=== PATIENT | female | born 1985 ===

== ENCOUNTER 2017-06-12 10:25 | Inpatient (IN) | payer OTHER ==
[2017-06-12] MEDS ORDERED: Sodium Chloride 0.9% 1,000 ML IV ONE ×2 (11:01→12:49)
--- NOTE | 2017-06-12 11:10 | C.PDOC ---
History Of Present Illness 32 y/o female, with history of hyperthyroidism and depression, presents to the ER complaining of dizziness. Patient states that she has not been feeling well for the past 3 days. Patient reports that she fainted 2 days ago. She feels dizzy while standing. She notes that she is shaking and vomiting.She is taking her medications for hyperthyroidism. Time Seen by Provider: 06/12/17 10:52 Chief Complaint (Nursing): Dizziness/Lightheaded History Per: Patient History/Exam Limitations: no limitations Onset/Duration Of Symptoms: Days Current Symptoms Are (Timing): Still Present Severity: Moderate Past Medical History Reviewed: Historical Data, Nursing Documentation, Vital Signs Vital Signs: Last Vital Signs Temp 98.1 F 06/12/17 10:38 Pulse 90 06/12/17 10:38 Resp 16 06/12/17 10:38 BP 141/102 H 06/12/17 10:38 Pulse Ox 100 06/12/17 14:15 - Medical History PMH: Depression, Hyperthyroidism Surgical History: No Surg Hx Family History: States: No Known Family Hx - Social History Hx Alcohol Use: No Hx Substance Use: No Review Of Systems Except As Marked, All Systems Reviewed And Found Negative. Constitutional: Negative for: Fever, Chills Gastrointestinal: Positive for: Vomiting Neurological: Positive for: Dizziness Physical Exam - Physical Exam Appears: Non-toxic, No Acute Distress Skin: Normal Color, Warm Head: Atraumatic, Normacephalic Eye(s): bilateral: Normal Inspection Nose: Normal Oral Mucosa: Moist Neck: Supple Chest: Symmetrical Cardiovascular: Rhythm Regular Respiratory: Normal Breath Sounds, No Accessory Muscle Use, No Rales, No Rhonchi , No Wheezing Gastrointestinal/Abdominal: Normal Exam, Soft, No Tenderness Extremity: Normal ROM Neurological/Psych: Oriented x3, Normal Speech, Normal Motor, Normal Sensation ED Course And Treatment - Laboratory Results Result Diagrams: 06/12/17 11:20 06/12/17 11:20 Lab Interpretation: Abnormal Urine POC: Negative ECG: Interpreted By Me ECG Rhythm: Sinus Rhythm, ST/T Changes ECG Interpretation: Normal O2 Sat by Pulse Oximetry: 100 (RA) Pulse Ox Interpretation: Normal - Radiology CXR: Interpreted by Nm CXR Interpretation: Yes: No Acute Disease Progress Note: Treated with IVF NSS x 2 liters Reassessment Condition: Improved - Physician Consult Information Physician Contacted: Bandar Hammer Outcome Of Conversation: admit Medical Decision Making Medical Decision Making: Plan: --Labs --UA --Meclizine PO Disposition Discussed With Dr.: Bandar Hammer Doctor Will See Patient In The: Hospital - Disposition Disposition: HOSPITALIZED Disposition Time: 13:20 Condition: STABLE - POA Present On Arrival: None - Clinical Impression Clinical Impression: Renal failure, Dizziness, Elevated TSH - PA / AREA FORESTER / Resident Statement MD/DO has reviewed & agrees with the documentation as recorded. - Scribe Statement The provider has reviewed the documentation as recorded by the Scribe César Williamson Provider Attestation All medical [facility] entries [facility] were at my direction and personally dictated by me. I have reviewed the chart and agree that the record accurately reflects my personal performance of the history, physical exam, medical decision making, and the department course for this patient. I have also personally directed, reviewed, and agree with the discharge instructions and disposition. Decision To Admit - Pt Status Changed To: Hospital Disposition Of: Inpatient - Admit Certification Admit to Inpatient:: After my assessment, the patient will require hospitalization for at least two midnights. This is because of the severity of symptoms shown, intensity of services needed, and/or the medical risk in this patient being treated as an outpatient. - InPatient: Physician Admission Certification: I certify that this patient requires 2 or more midnights of care for the following reason:: Renal Failure. Elevated TSH - . Bed Request Type: Regular Admitting Physician: Bandra Hammer Patient Diagnosis: Dizziness, Renal failure, Elevated TSH
[2017-06-12 11:32] LABS: BASO % 0.1 % (0.0-2.0); HEMOGLOBIN 11.8 g/dL (11.0-16.0); LYMPH # 1.4 K/uL (1.0-4.3); LYMPH % 20.6 % (20.0-40.0); MEAN CORPUSCULAR HGB CONC 33.4 g/dL (33.0-37.0); MEAN PLATELET VOLUME 7.8 fL (7.2-11.7); MONO # 0.3 K/uL (0.0-0.8); NEUT % 74.3 % (50.0-75.0); RBC 4.37 Mil/uL (3.80-5.20); RED CELL DISTRIBUTION WIDTH 14.5 % (11.5-14.5); WHITE BLOOD COUNT 6.7 K/uL (4.8-10.8)
[2017-06-12 11:39] LABS: ALB/GLOB RATIO 1.1 (1.0-2.1); ALBUMIN 4.3 g/dL (3.5-5.0); CALCIUM 9.7 mg/dl (8.6-10.4)
[2017-06-12 12:01] LABS: HCG,QUALITATIVE URINE NEGATIVE (NEGATIVE)
[2017-06-12 12:04] LABS: SQUAMOUS EPITHIAL 4 /hpf (0-5); URINE BACTERIA RARE (<OCC); URINE BILIRUBIN NEGATIVE (NEGATIVE); URINE BLOOD 2+ (NEGATIVE); URINE CLARITY Clear (Clear); URINE COLOR Straw (YELLOW); URINE GLUCOSE (UA) NORMAL (Normal); URINE LEUKOCYTE ESTERASE 1+ Leu/uL (Negative); URINE PROTEIN NEGATIVE (NEGATIVE); URINE UROBILINOGEN NORMAL mg/dL (0.2-1.0)
--- NOTE | 2017-06-12 13:16 | RAD ---
HISTORY: SOB COMPARISON: Chest x-ray performed 05/12/16 TECHNIQUE: Chest PA and lateral FINDINGS: Examination limited by habitus. LUNGS: No focal consolidation. Please note that chest x-ray has limited sensitivity for the detection of pulmonary masses. PLEURA: No significant pleural effusion identified. No definite pneumothorax . CARDIOVASCULAR: Heart size appears within normal limits. OSSEOUS STRUCTURES: No acute osseous abnormality identified. VISUALIZED UPPER ABDOMEN: Unremarkable. OTHER FINDINGS: None. IMPRESSION: No focal consolidation identified.
--- NOTE | 2017-06-12 18:50 | CP.PCM.HP ---
History of Present Illness - History of Present Illness History of Present Illness: 32 y/o female, with history of hyperthyroidism and depression, presents to the ER complaining of dizziness. Patient states that she has not been feeling well for the past 3 days. Patient reports that she fainted 2 days ago. She feels dizzy while standing. She notes that she is shaking and vomiting. She reports to be compliant with her medications for hypothyroidism Present on Admission - Present on Admission Any Indicators Present on Admission: No History of DVT/PE: No History of Uncontrolled Diabetes: No Urinary Catheter: No Decubitus Ulcer Present: No Review of Systems - Review of Systems All systems: reviewed and no additional remarkable complaints except (As mentioned in HPI) Past Patient History - Past Social History Smoking Status: Never Smoked - ENDOCRINE/METABOLIC Hx Hyperthyroidism: Yes - PSYCHIATRIC Hx Depression: Yes Hx Substance Use: No - SURGICAL HISTORY Hx Surgeries: No - ANESTHESIA Hx Anesthesia: No Meds Home Medications: Home Medication List Medication Instructions Recorded Confirmed Type Levothyroxine [Synthroid] 100 mcg PO DAILY@0630 tab 06/17/17 Rx Multivitamins [Hexavitamin] 1 tab PO DAILY tab 06/17/17 Rx amLODIPine [Norvasc] 5 mg PO DAILY #30 tab 06/17/17 Rx traZODone [Desyrel] 50 mg PO HS #15 tab 06/17/17 Rx Allergies/Adverse Reactions: Allergies Allergy/AdvReac Type Severity Reaction Status Date / Time No Known Allergies Allergy Verified 06/22/17 13:23 Physical Exam - Head Exam Head Exam: NORMAL INSPECTION - Eye Exam Eye Exam: Normal appearance - ENT Exam ENT Exam: Mucous Membranes Moist - Respiratory Exam Respiratory Exam: Clear to Auscultation Bilateral - Cardiovascular Exam Cardiovascular Exam: REGULAR RHYTHM - GI/Abdominal Exam GI & Abdominal Exam: Normal Bowel Sounds, Soft - Extremities Exam Extremities exam: Positive for: normal inspection Results - Vital Signs Recent Vital Signs: Last Vital Signs Temp 98.9 F 06/12/17 17:07 Pulse 68 06/12/17 17:07 Resp 20 06/12/17 17:07 BP 124/89 06/12/17 17:07 Pulse Ox 98 06/12/17 17:07 - Labs Result Diagrams: 06/15/17 08:18 06/17/17 11:15 Labs: Laboratory Results - last 24 hr 06/12/17 06/12/17 06/12/17 10:56 11:20 11:20 WBC 6.7 RBC 4.37 Hgb 11.8 Hct 35.4 MCV 81.0 MCH 27.0 MCHC 33.4 RDW 14.5 Plt Count 321 MPV 7.8 Neut % (Auto) 74.3 Lymph % (Auto) 20.6 [place] % (Auto) 5.0 Eos % (Auto) 0.0 Baso % (Auto) 0.1 Neut # (Auto) 5.0 Lymph # (Auto) 1.4 [place] # (Auto) 0.3 Eos # (Auto) 0.0 Baso # (Auto) 0.0 Sodium 140 Potassium 5.1 Chloride 107 Carbon Dioxide 22 Anion Gap 17 BUN 19 H Creatinine 2.2 H Est GFR ( Amer) 31 Est GFR (Non-Af Amer) 26 POC Glucose (mg/dL) 86 Random Glucose 94 Calcium 9.7 Total Bilirubin 0.4 AST 22 ALT 18 Alkaline Phosphatase 133 H Total Protein 8.1 Albumin 4.3 Globulin 3.8 Albumin/Globulin Ratio 1.1 TSH 3rd Generation 14.10 H Urine Color Urine Clarity Urine pH Ur Specific [place] Urine Protein Urine Glucose (UA) Urine Ketones Urine Blood Urine Nitrate Urine Bilirubin Urine Urobilinogen Ur Leukocyte Esterase Urine WBC (Auto) Urine RBC (Auto) Ur Squamous Epith Cells Urine Bacteria Urine HCG, Qual 06/12/17 11:54 WBC RBC Hgb Hct MCV MCH MCHC RDW Plt Count MPV Neut % (Auto) Lymph % (Auto) [place] % (Auto) Eos % (Auto) Baso % (Auto) Neut # (Auto) Lymph # (Auto) [place] # (Auto) Eos # (Auto) Baso # (Auto) Sodium Potassium Chloride Carbon Dioxide Anion Gap BUN Creatinine Est GFR ( Amer) Est GFR (Non-Af Amer) POC Glucose (mg/dL) Random Glucose Calcium Total Bilirubin AST ALT Alkaline Phosphatase Total Protein Albumin Globulin Albumin/Globulin Ratio TSH 3rd Generation Urine Color Straw Urine Clarity Clear Urine pH 7.0 Ur Specific [place] 1.002 L Urine Protein Negative Urine Glucose (UA) Normal Urine Ketones Negative Urine Blood 2+ H Urine Nitrate Negative Urine Bilirubin Negative Urine Urobilinogen Normal Ur Leukocyte Esterase 1+ H Urine WBC (Auto) 5 Urine RBC (Auto) 20 H Ur Squamous Epith Cells 4 Urine Bacteria Rare Urine HCG, Qual Negative Assessment & Plan - Assessment and Plan (Free Text) Assessment: LI versus CKD Bipolar disorder Anemia Nephrology consult Renal sono Urine lites Gentle hydration Follow CBC Hold lithium and other bipolar medications Psych consult DVT/GI prophylaxis
[2017-06-12] MEDS ORDERED: Sodium Chloride 0.45% 500ml 500 ML SOL IV SCH (19:00)
[2017-06-12] MEDS ORDERED: Sodium Chloride 0.9% 1,000 ML IV SCH (19:15)
[2017-06-12] MEDS: Sodium Chloride 0.45% 1,000 ML IV SCH (20:08)
[2017-06-12] MEDS: Ciprofloxacin 400mg/200ml D5W 400 MG/200 ML BAG IVPB SCH (22:20)
[2017-06-13 07:58] VITALS: RESP 20
[2017-06-13 08:35] LABS: HEMOGLOBIN 11.7 g/dL (11.0-16.0); MEAN CELL VOLUME 80.9 fL (81.0-99.0); MEAN CORPUSCULAR HEMOGLOBIN 27.2 pg (27.0-31.0); MEAN CORPUSCULAR HGB CONC 33.6 g/dL (33.0-37.0); MEAN PLATELET VOLUME 7.9 fL (7.2-11.7); RBC 4.29 Mil/uL (3.80-5.20); RED CELL DISTRIBUTION WIDTH 14.9 % (11.5-14.5); WHITE BLOOD COUNT 5.6 K/uL (4.8-10.8)
[2017-06-13 09:26] LABS: ALB/GLOB RATIO 1.1 (1.0-2.1); CALCIUM 9.7 mg/dl (8.6-10.4)
--- NOTE | 2017-06-13 10:27 | US ---
PROCEDURE: Ultrasound of the Kidneys HISTORY: LI COMPARISON: None available. TECHNIQUE: Sonogram of the kidneys. FINDINGS: RIGHT KIDNEY: Measures: 10.6 x 4.1 x 5.4 cm. Mildly echogenic renal parenchyma. No obstructing calculus, cyst, or hydronephrosis visualized. LEFT KIDNEY: Measures: 11.5 x 5.2 x 3.4 cm. Mildly echogenic renal parenchyma. No obstructing calculus, cyst, or hydronephrosis visualized. OTHER FINDINGS: Cholelithiasis. IMPRESSION: No obstructing calculus, cyst, or hydronephrosis visualized. Incidental note is made of cholelithiasis.
[2017-06-13] MEDS: Sodium Chloride 0.45% 1,000 ML IV SCH (10:54)
[2017-06-13 15:03] LABS: PROTHROMBIN TIME 11.6 SECONDS (9.7-12.2)
--- NOTE | 2017-06-13 15:19 | CP.PCM.CON ---
History of Present Illness - History of Present Illness History of Present Illness: Nephrology Consultation Note: Assessment: Stable Microscopic hematuria Anemia Hypernatremia and low urines specific gravity ? 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 Hypertension control with meds as ordered. Patient not on ACEI/ARB due to LI Monitor Input/Output, daily weights and renal function with basic metabolic panel Check urine analysis, spot protein/creatinine and albumin/creatinine ratio Check for 25-OH vitamin D, iPTH Check GN work up as C3, C4, KAIT, Anti dsDNA. Check lithium level Continue the IV fluid as ordered patient was encouraged to drink plenty of fluid and water Discussed kidney biopsy as a way to diagnosis of her kidney disease at this time. patient is agreeable patient is scheduled for kidney biopsy tomorrow This is the primary team as well. Discussed with psychiatrist as well and he is agreeable to hold the lithium at this time Hold the metformin at this time as well. Check A1c The patient to lose weight Dose meds/antibiotics for reduced GFR. Avoid fleets enema/magnesium based laxatives. Avoid nephrotoxins/NSAIDs/ iodinated contrast (unless needed emergently) Glycemic control Further work up/management as per primary team Thanks for allowing me to participate in care of your patient. Will follow patient with you. Please call if any Qs Dr Abhishek Zimmer Office: [phone] Chief Complaint; Dizziness Reason for consultation is Li HPI: Pt is a 32-year-old female with history of obesity bipolar disorder on lithium for more than 10 years also on metformin? Reason also thyroid disorder currently on thyroid supplementation presented with complaints of Dizziness and also elevated creatinine and hence renal was consulted Denies OTC/herbal meds or NSAIDs Except occasional use for headache No recent iodinated contrast exposure. No obvious episodes of low BP. ROS: Cardiovascular: No chest pain. Pulmonary: No shortness of breath Gastrointestinal: denies abdominal pain No nausea. No vomiting. Genitourinary: No pain while urinating. Denies blood in urine. All other negative except as mentioned in HPI Physical Examination: General Appearance: Comfortable, in no acute respiratory distress, co-operative . Vitals reviewed and noted as below Head; Atraumatic, normocephalic ENT: no ulcers no thrush. Tongue is midline. Oropharynx: no rash or ulcers. EYES: Pupils are equal, round and reactive to light accommodation. Eye muscles and extraocular movement intact. Sclera is anicteric. Neck; supple no lymphadenopathy, no thyromegaly or bruit Lungs: Normal respiratory rate/effort. Breath sounds bilateral equal and clear Heart: Normal rate. s1s2 normal. No rub or gallop. Extremities: no edema. No varicose veins Neurological: Patient is alert, awake and oriented to person, place and time. No focal deficit. Strength bilateral appropriate and equal Skin: Warm and dry. Normal turgor. No rash. Palpitation: Normal elasticity for age Abdomen: Abdomen is soft. Bowel sounds +. There is no abdominal tenderness, no guarding/rigidity no organomegaly Psych: normal insight and normal affect/mood MSK: no joint tenderness or swelling. Digits and nails normal, no deformity : kidney or bladder not palpable Labs/imaging reviewed. Past medical history, past surgical history, family history, social history, allergy reviewed and noted as below Family hx: no hx of CKD. Rest non-contributory Workup UA shows specific gravity of 1.002 and 2+ blood no protein Renal sonogram bilateral mildly echogenic kidneys Past Patient History - Past Social History Smoking Status: Never Smoked - CARDIAC Hx Hypertension: Yes (?) Hx Hypotension: Yes (?) - ENDOCRINE/METABOLIC Hx Hyperthyroidism: Yes - MUSCULOSKELETAL/RHEUMATOLOGICAL Hx Falls: Yes (2 months) - PSYCHIATRIC Hx Depression: Yes Hx Substance Use: No - SURGICAL HISTORY Hx Surgeries: No - ANESTHESIA Hx Anesthesia: No Meds Allergies/Adverse Reactions: Allergies Allergy/AdvReac Type Severity Reaction Status Date / Time No Known Allergies Allergy Verified 06/12/17 10:47 - Medications Medications: Current Medications Aripiprazole (Abilify) 10 mg PO HS TR[facility] Heparin Sodium (Porcine) (Heparin) 5,000 units SC Q12 TR[facility] Last Admin: 06/13/17 10:54 Dose: 5,000 units Sodium Chloride (Sodium Chloride 0.45%) 1,000 mls @ 75 mls/hr IV .[id number] TRISH Last Admin: 06/13/17 10:54 Dose: Not Given Ciprofloxacin (Cipro 400mg/200ml Dsw) 400 mg in 200 mls @ 133 mls/hr IVPB Q24H [facility] Last Admin: 06/12/17 22:20 Dose: 133 mls/hr Pneumococcal Polyvalent Vaccine (Pneumovax 23 Vaccine) 0.5 ml IM .ONCE ONE Stop: 06/14/17 10:01 Trazodone HCl (Desyrel) 50 mg PO [facility] Results - Vital Signs Recent Vital Signs: Last Vital Signs Temp 97.8 F 06/13/17 07:57 Pulse 76 06/13/17 07:57 Resp 20 06/13/17 07:57 BP 127/84 06/13/17 07:57 Pulse Ox 98 06/13/17 07:57 - Labs Result Diagrams: 06/13/17 08:24 06/13/17 08:24 Labs: Laboratory Results - last 24 hr 06/12/17 06/13/17 06/13/17 21:31 08:24 08:24 WBC 5.6 RBC 4.29 Hgb 11.7 Hct 34.7 MCV 80.9 L MCH 27.2 MCHC 33.6 RDW 14.9 H Plt Count 325 MPV 7.9 PT INR APTT Sodium 147 Potassium 5.0 Chloride 115 H Carbon Dioxide 21 L Anion Gap 16 BUN 17 Creatinine 2.1 H Est GFR ( Amer) 33 Est GFR (Non-Af Amer) 27 Random Glucose 99 Hemoglobin A1c Calcium 9.7 Total Bilirubin 0.5 AST 23 ALT 16 Alkaline Phosphatase 127 H Total Protein 7.6 Albumin 4.0 Globulin 3.6 Albumin/Globulin Ratio 1.1 Ur Random Sodium 38 06/13/17 06/13/17 14:52 14:52 WBC RBC Hgb Hct MCV MCH MCHC RDW Plt Count MPV PT 11.6 INR 1.0 APTT 32 Sodium Potassium Chloride Carbon Dioxide Anion Gap BUN Creatinine Est GFR ( Amer) Est GFR (Non-Af Amer) Random Glucose Hemoglobin A1c 5.5 Calcium Total Bilirubin AST ALT Alkaline Phosphatase Total Protein Albumin Globulin Albumin/Globulin Ratio Ur Random Sodium
--- NOTE | 2017-06-13 15:57 | PCM.PSYCH ---
Initial Psychiatric Evaluation - Initial Psychiatric Evaluation Type of Admission: Voluntary Legal Status: Capacity Chief Complaint (in patient's own words): Psych Consult for depression History of Present Illness and Precipitating Events: Consult was asked for her psych hx 32 yo F with PMHx significant for hypothyroid, HTN, bipolar disorder and depression who presented to the ED yesterday for feelings of dizziness, lightheadedness and near-syncope x 1 over the past few days. Upon arrival to the ED, her CMP revealed elevated BUN/Cr and she was subsequently admitted for LI. CXR negative for acute pathology. Renal u/s negative for hydronephrosis. Psych consult was requested for patient's h/o depression and for review of medications. At this time, patient feels well overall. Denies any current anxiety, depression, sadness, panic episodes, sleep disturbances, SI/HI, hallucinations, catherine or seizure. Medications: [place], Abilify, Zyprexa Psych Hx: Hospitalized multiple times for psychiatric issues (last time in 2011) . She receives care from [facility]. Denies any drugs, alcohol or tobacco use. No prior suicidal attempts. Fam Hx: Denies Current Medications: Active Medications Generic Name Dose Route Start Last Admin Trade Name Freq PRN Reason Stop Dose Admin Aripiprazole 10 mg 06/13/17 22:00 Abilify PO HS TRISH Heparin Sodium (Porcine) 5,000 units 06/12/17 22:00 06/13/17 10:54 Heparin SC 5,000 units Q12 TRISH Administration Sodium Chloride 1,000 mls @ 75 mls/hr 06/12/17 19:15 06/13/17 10:54 Sodium Chloride 0.45% IV Not Given .[id number] TRISH Ciprofloxacin 400 mg in 200 mls @ 133 mls/hr 06/12/17 21:00 06/12/17 22:20 Cipro 400mg/200ml Dsw IVPB 133 mls/hr Q24H TRISH Administration Pneumococcal Polyvalent Vaccine 0.5 ml 06/14/17 10:00 Pneumovax 23 Vaccine IM 06/14/17 10:01 .ONCE ONE Trazodone HCl 50 mg 06/13/17 22:00 Desyrel PO HS TRISH Past Psychiatric History - Past Psychiatric History Pertinent Medical Hx (Current Medical&Sleep Prob, Allergies): Allergies Allergy/AdvReac Type Severity Reaction Status Date / Time No Known Allergies Allergy Verified 06/12/17 10:47 Naproxen [Naprosyn] 500 mg PO BID PRN #20 tab 05/12/16 ARIPiprazole [Abilify] 15 mg PO DAILY 06/12/17 Levothyroxine [Synthroid] 50 mcg PO DAILY 06/12/17 Westdale Carbonate [Westdale Carbonate 300MG] 300 mg PO HS 06/12/17 Metformin ER [Glucophage XR] 750 mg PO DAILY 06/12/17 Olanzapine [Zyprexa] 1 tab PO HS 06/12/17 Review of Systems - Constitutional Constitutional: absent: Fever, Chills - Psychiatric Psychiatric: absent: Anxiety, Confusion, Depression, Hallucinations, Homicidal Ideation, Irritability, Panic Attacks, Paranoia, Suicidal Ideation Mental Status Examination - Personal Presentation Personal Presentation: Looks stated age - Affect Affect: Broad - Motor Activity Motor Activity: Calm - Reliability in Providing Information Reliability in Providing Information: Good - Speech Speech: Organized - Mood Mood: Neutral - Formal Thought Process Formal Thought Process: No Impairment - Obsessions/Compulsions Obsessions: No Compulsions: No - Cognitive Functions Orientation: Person, Place, Situation, Time Sensorium: Alert Abstract Thinking: [place] Judgement: Intact, as evidence by: Good judgement Memory: Recent intact, as evidence by: Ability to recall events of the day, Remote intact, as evidenced by: Abilit to recall sig. life events - Risk Risk: Seizure, Diminished functioning - Strength & Assets Inventory Strength & Assets Inventory: Intelligence, Family support, Employment status, Skills, Life experience, Cooperative DSM 5 DX - DSM 5 DSM 5 Diagnosis: Bipola 1 d/o - depressed/mild - Recommended/Plan of Treatment Treatment Recommendations and Plan of Treatment: Plan to stop [place] at this time and evaluate for lithium toxicity Pt instructed to avoid NSAIDS and ASA Cont. Abilify pr meds Resume synthroid 33 min - Smoking Cessation Smoking Cessation Initiated: No
--- NOTE | 2017-06-13 18:05 | CP.PCM.PN ---
Subjective - Date & Time of Evaluation Date of Evaluation: 06/13/17 Time of Evaluation: 18:05 - Subjective Subjective: Patient seen and examined No events overnight Objective - Vital Signs/Intake and Output Vital Signs (last 24 hours): Temp Pulse Resp BP Pulse Ox 97.3 F L 99 H 20 136/94 H 99 06/13/17 16:00 06/13/17 16:00 06/13/17 16:00 06/13/17 16:00 06/13/17 16:00 Intake and Output: 06/13/17 06/13/17 06:59 18:59 Intake Total 1460 600 Balance 1460 600 - Medications Medications: Current Medications Aripiprazole (Abilify) 10 mg PO HS [facility] Heparin Sodium (Porcine) (Heparin) 5,000 units SC Q12 [facility] Last Admin: 06/13/17 10:54 Dose: 5,000 units Sodium Chloride (Sodium Chloride 0.45%) 1,000 mls @ 75 mls/hr IV .[id number] [facility] Last Admin: 06/13/17 10:54 Dose: Not Given Ciprofloxacin (Cipro 400mg/200ml Dsw) 400 mg in 200 mls @ 133 mls/hr IVPB Q24H [facility] Last Admin: 06/12/17 22:20 Dose: 133 mls/hr Pneumococcal Polyvalent Vaccine (Pneumovax 23 Vaccine) 0.5 ml IM .ONCE ONE Stop: 06/14/17 10:01 Trazodone HCl (Desyrel) 50 mg PO [facility] - Labs Labs: 06/13/17 08:24 06/13/17 08:24 PT 11.6 SECONDS (9.7-12.2) 06/13/17 14:52 INR 1.0 06/13/17 14:52 APTT 32 SECONDS (21-34) 06/13/17 14:52 - Head Exam Head Exam: NORMAL INSPECTION - Eye Exam Eye Exam: Normal appearance - ENT Exam ENT Exam: Mucous Membranes Moist - Respiratory Exam Respiratory Exam: Clear to Ausculation Bilateral - Cardiovascular Exam Cardiovascular Exam: REGULAR RHYTHM, +S1, +S2 - GI/Abdominal Exam GI & Abdominal Exam: Soft, Normal Bowel Sounds - Extremities Exam Extremities Exam: Normal Inspection - Neurological Exam Neurological Exam: Alert, Oriented x3 Assessment and Plan - Assessment and Plan (Free Text) Assessment: 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
--- NOTE | 2017-06-13 18:56 | CARD ---
APPROVED REPORT EKG Measurement Heart [id number] <Conclusion> Normal sinus rhythm Nonspecific ST abnormality Abnormal ECG
[2017-06-13] MEDS: Ciprofloxacin 400mg/200ml D5W 400 MG/200 ML BAG IVPB SCH (21:38)
[2017-06-13 22:19] LABS: CREATININE, RANDOM URINE 18.4 mg/dL
--- NOTE | 2017-06-13 23:25 | CP.PCM.CON ---
History of Present Illness - History of Present Illness History of Present Illness: hypothyroidism Past Patient History - Past Social History Smoking Status: Never Smoked - CARDIAC Hx Hypertension: Yes (?) Hx Hypotension: Yes (?) - ENDOCRINE/METABOLIC Hx Hyperthyroidism: Yes - MUSCULOSKELETAL/RHEUMATOLOGICAL Hx Falls: Yes (2 months) - PSYCHIATRIC Hx Depression: Yes Hx Substance Use: No - SURGICAL HISTORY Hx Surgeries: No - ANESTHESIA Hx Anesthesia: No Meds Allergies/Adverse Reactions: Allergies Allergy/AdvReac Type Severity Reaction Status Date / Time No Known Allergies Allergy Verified 06/12/17 10:47 - Medications Medications: Current Medications Aripiprazole (Abilify) 10 mg PO HS [facility] Last Admin: 06/13/17 22:00 Dose: 10 mg Heparin Sodium (Porcine) (Heparin) 5,000 units SC Q12 [facility] Last Admin: 06/13/17 21:41 Dose: 5,000 units Sodium Chloride (Sodium Chloride 0.45%) 1,000 mls @ 75 mls/hr IV .[id number] [facility] Last Admin: 06/13/17 10:54 Dose: Not Given Ciprofloxacin (Cipro 400mg/200ml Dsw) 400 mg in 200 mls @ 133 mls/hr IVPB Q24H [facility] Last Admin: 06/13/17 21:38 Dose: 133 mls/hr Pneumococcal Polyvalent Vaccine (Pneumovax 23 Vaccine) 0.5 ml IM .ONCE ONE Stop: 06/14/17 10:01 Trazodone HCl (Desyrel) 50 mg PO [facility] Last Admin: 06/13/17 21:40 Dose: 50 mg Results - Vital Signs Recent Vital Signs: Last Vital Signs Temp 97.3 F L 06/13/17 16:00 Pulse 99 H 06/13/17 16:00 Resp 20 06/13/17 16:00 BP 136/94 H 06/13/17 16:00 Pulse Ox 99 06/13/17 16:00 - Labs Result Diagrams: 06/13/17 08:24 06/13/17 08:24 Labs: Laboratory Results - last 24 hr 06/13/17 06/13/17 06/13/17 08:24 08:24 14:52 WBC 5.6 RBC 4.29 Hgb 11.7 Hct 34.7 MCV 80.9 L MCH 27.2 MCHC 33.6 RDW 14.9 H Plt Count 325 MPV 7.9 PT 11.6 INR 1.0 APTT 32 Sodium 147 Potassium 5.0 Chloride 115 H Carbon Dioxide 21 L Anion Gap 16 BUN 17 Creatinine 2.1 H Est GFR ( Amer) 33 Est GFR (Non-Af Amer) 27 Random Glucose 99 Hemoglobin A1c Calcium 9.7 Total Bilirubin 0.5 AST 23 ALT 16 Alkaline Phosphatase 127 H Total Protein 7.6 Albumin 4.0 Globulin 3.6 Albumin/Globulin Ratio 1.1 Urine Osmolality Ur Random Creatinine U Random Total Protein Ur Random Sodium Urine Microalbumin [place] 06/13/17 06/13/17 06/13/17 14:52 14:52 21:51 WBC RBC Hgb Hct MCV MCH MCHC RDW Plt Count MPV PT INR APTT Sodium Potassium Chloride Carbon Dioxide Anion Gap BUN Creatinine Est GFR ( Amer) Est GFR (Non-Af Amer) Random Glucose Hemoglobin A1c 5.5 Calcium Total Bilirubin AST ALT Alkaline Phosphatase Total Protein Albumin Globulin Albumin/Globulin Ratio Urine Osmolality 132 L Ur Random Creatinine 18.4 U Random Total Protein Ur Random Sodium 30 Urine Microalbumin [place] 1.0 06/13/17 06/13/17 21:53 21:55 WBC RBC Hgb Hct MCV MCH MCHC RDW Plt Count MPV PT INR APTT Sodium Potassium Chloride Carbon Dioxide Anion Gap BUN Creatinine Est GFR ( Amer) Est GFR (Non-Af Amer) Random Glucose Hemoglobin A1c Calcium Total Bilirubin AST ALT Alkaline Phosphatase Total Protein Albumin Globulin Albumin/Globulin Ratio Urine Osmolality Ur Random Creatinine U Random Total Protein 16.0 H Ur Random Sodium Urine Microalbumin < 6.0 [place] Assessment & Plan (1) Hypothyroid Assessment and Plan: Endocrine consult reason for consult: hypothyroidism Source: pt and chart review Ms. Jimenes is 32 y/o admitted for diziness found with TSH of 14 as per pt. has hypothyroidism x 12 years on synthroid 50 mcg po qd , as per pt. compliant with her medications has been feeling tired & gaining weight , also with multinodular goiter s/p multiple FNAs , last was 2017 ok as per pt. 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 HEENT: denies earache, change in voice .Respiratory: denies cough, sob . CVS :no chest pain , no palpitations . Abdomen: no abdominal pain, no nausea /vomiting, no change bowel movement. 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 Extremities: no edema, no tremors. Skin: no itching, no rash Physical exam Well-developed AAO x3 , ,NAD VSS HEENT: norm cephalic, atraumatic, no lid lag , no exophthalmos NECK: supple, no palpable lymphadenopathy THYROID: (+) thyromegaly, not tender CHEST: fair air entry, bilateral, CVS: S1,S2 ABDOMEN: bowel sound present, benign, obese, no wide purple striae , no bruises EXTREMITIES: no edema, clubbing or cyanosis, no palpable hand tremors Skin: acanthosis nigricans lab: tsh 14 , a1c 5.5 , cr 2.2 GFR 33 Assessment hypothyroid multinodular goiter CKD obesity , parents with diabetes plan resume and increase synthroid 75 mcg po qd obtain thyroid functions & antibodies obtain fructosamine level thyroid us Thank you for allowing me to participate in the care of the patient, we will follow with you. Status: Acute (2) Multinodular goiter Status: Acute (3) Obesity (BMI 30-39.9) Status: Acute (4) Renal failure Status: Acute
[2017-06-14] MEDS: Sodium Chloride 0.45% 1,000 ML IV SCH ×3 (06:04→21:32)
[2017-06-14] MEDS ORDERED: Levothyroxine 75 MCG TAB PO SCH (06:30)
[2017-06-14 07:17] LABS: BASO % 0.1 % (0.0-2.0); HEMOGLOBIN 11.3 g/dL (11.0-16.0); LYMPH # 1.7 K/uL (1.0-4.3); LYMPH % 29.9 % (20.0-40.0); MEAN CELL VOLUME 80.8 fL (81.0-99.0); MEAN CORPUSCULAR HEMOGLOBIN 27.4 pg (27.0-31.0); MEAN CORPUSCULAR HGB CONC 33.9 g/dL (33.0-37.0); MEAN PLATELET VOLUME 7.6 fL (7.2-11.7); MONO # 0.4 K/uL (0.0-0.8); MONO % 6.9 % (0.0-10.0); NEUT # 3.6 K/uL (1.8-7.0); NEUT % 63.1 % (50.0-75.0); NRBC % 0.2 % (0.0-2.0); RBC 4.15 Mil/uL (3.80-5.20); RED CELL DISTRIBUTION WIDTH 14.3 % (11.5-14.5); WHITE BLOOD COUNT 5.7 K/uL (4.8-10.8)
[2017-06-14 07:27] LABS: IRON 109 ug/dL (37-170)
[2017-06-14 07:29] LABS: CALCIUM 9.5 mg/dl (8.6-10.4)
[2017-06-14 07:37] LABS: % IRON SATURATION 33 (20-55); TOTAL IRON BINDING CAPACITY 333 ug/dL (250-450)
[2017-06-14] MEDS ORDERED: Pneumococcal 23-Valent Vaccine IM ONE (10:00)
[2017-06-14] MEDS ORDERED: Influenza Vaccine 60 mcg/0.5 mL SYR (4YR UP) IM ONE (10:00)
[2017-06-14 11:05] LABS: T4 8.26 ug/dL (5.5-11.0)
[2017-06-14 11:19] LABS: T3 1.88 nmol/L (1.49-2.60)
[2017-06-14 11:22] LABS: FERRITIN 27.6 ng/mL
--- NOTE | 2017-06-14 11:26 | CP.PCM.PN ---
Subjective - Date & Time of Evaluation Date of Evaluation: 06/14/17 Time of Evaluation: 11:25 - Subjective Subjective: Nephrology Consultation Note: Assessment: Stable Microscopic hematuria with 1 gram proteinuria Anemia Hypernatremia and low urines specific gravity/osmol ? 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 Hypertension control with meds as ordered. Patient not on ACEI/ARB due to LI. start norvasc 5 mg/day Monitor Input/Output, daily weights and renal function with basic metabolic panel Check for 25-OH vitamin D, iPTH Check GN work up as C3, C4, KAIT, Anti dsDNA. Continue the IV fluid as ordered patient was encouraged to drink plenty of fluid and water Discussed kidney biopsy as a way to diagnosis of her kidney disease etiology at this time. patient is agreeable patient is scheduled for kidney biopsy today This is the primary team as well. Discussed with psychiatrist as well and he is agreeable to hold the lithium at this time Hold the metformin at this time as well. a1c WNL The patient to lose weight Dose meds/antibiotics for reduced GFR. Avoid fleets enema/magnesium based laxatives. Avoid nephrotoxins/NSAIDs/ iodinated contrast (unless needed emergently) Glycemic control Further work up/management as per primary team Thanks for allowing me to participate in care of your patient. Will follow patient with you. Please call if any Qs Dr Abhishek Zimmer Office: [phone] Chief Complaint; Dizziness Reason for consultation is Li HPI: Pt is a 32-year-old female with history of obesity bipolar disorder on lithium for more than 10 years also on metformin? Reason also thyroid disorder currently on thyroid supplementation presented with complaints of Dizziness and also elevated creatinine and hence renal was consulted Denies OTC/herbal meds or NSAIDs Except occasional use for headache No recent iodinated contrast exposure. No obvious episodes of low BP. ROS: Cardiovascular: No chest pain. Pulmonary: No shortness of breath Gastrointestinal: denies abdominal pain No nausea. No vomiting. Genitourinary: No pain while urinating. Denies blood in urine. All other negative except as mentioned in HPI Physical Examination: General Appearance: Comfortable, in no acute respiratory distress, co-operative . Vitals reviewed and noted as below Head; Atraumatic, normocephalic ENT: no ulcers no thrush. Tongue is midline. Oropharynx: no rash or ulcers. EYES: Pupils are equal, round and reactive to light accommodation. Eye muscles and extraocular movement intact. Sclera is anicteric. Neck; supple no lymphadenopathy, no thyromegaly or bruit Lungs: Normal respiratory rate/effort. Breath sounds bilateral equal and clear Heart: Normal rate. s1s2 normal. No rub or gallop. Extremities: no edema. No varicose veins Neurological: Patient is alert, awake and oriented to person, place and time. No focal deficit. Strength bilateral appropriate and equal Skin: Warm and dry. Normal turgor. No rash. Palpitation: Normal elasticity for age Abdomen: Abdomen is soft. Bowel sounds +. There is no abdominal tenderness, no guarding/rigidity no organomegaly Psych: normal insight and normal affect/mood MSK: no joint tenderness or swelling. Digits and nails normal, no deformity : kidney or bladder not palpable Labs/imaging reviewed. Past medical history, past surgical history, family history, social history, allergy reviewed and noted as below Family hx: no hx of CKD. Rest non-contributory Workup UA shows specific gravity of 1.002 and 2+ blood no protein Renal sonogram bilateral mildly echogenic kidneys Objective - Vital Signs/Intake and Output Vital Signs (last 24 hours): Temp Pulse Resp BP Pulse Ox 98.2 F 97 H 20 142/94 H 99 06/14/17 08:00 06/14/17 08:00 06/14/17 08:00 06/14/17 08:00 06/14/17 08:00 Intake and Output: 06/14/17 06/14/17 06:59 18:59 Intake Total 800 650 Balance 800 650 - Medications Medications: Current Medications Amlodipine Besylate (Norvasc) 5 mg PO DAILY [facility] Last Admin: 06/14/17 11:05 Dose: 5 mg Aripiprazole (Abilify) 10 mg PO HS [facility] Last Admin: 06/13/17 22:00 Dose: 10 mg Ferrous Gluconate (Fergon) 324 mg PO TID [facility] Heparin Sodium (Porcine) (Heparin) 5,000 units SC Q12 [facility] Last Admin: 06/14/17 11:01 Dose: Not Given Sodium Chloride (Sodium Chloride 0.45%) 1,000 mls @ 75 mls/hr IV .[id number] [facility] Last Admin: 06/14/17 06:04 Dose: 75 mls/hr Ciprofloxacin (Cipro 400mg/200ml Dsw) 400 mg in 200 mls @ 133 mls/hr IVPB Q24H [facility] Last Admin: 06/13/17 21:38 Dose: 133 mls/hr Levothyroxine Sodium (Synthroid) 75 mcg PO DAILY@0630 [facility] Last Admin: 06/14/17 06:02 Dose: 75 mcg Multivitamins (Hexavitamin) 1 tab PO DAILY [facility] Trazodone HCl (Desyrel) 50 mg PO HS [facility] Last Admin: 06/13/17 21:40 Dose: 50 mg - Labs Labs: 06/14/17 07:01 06/14/17 07:01 PT 11.6 SECONDS (9.7-12.2) 06/13/17 14:52 INR 1.0 06/13/17 14:52 APTT 32 SECONDS (21-34) 06/13/17 14:52
--- NOTE | 2017-06-14 11:52 | PCM.PYCHPN ---
Psychiatric Progress Note - Psychiatric Progress Note Patient seen today, length of contact: 15 min Patient Chief Complaint: Psych Consult Patient states "I feel better today" Problems Identified/Issues Discussed: The patient is seen, chart reviewed, case discussed with staff. She states that she slept well last night and is feeling much better today. She is making adequate urine and denies any dysuria or hematuria at this time. No new symptoms reported, improving slowly and needs more time. It is explained to patient that this was most likely due to the long-term lithium use however further testing will be needed to r/o other pathologies. Patient is otherwise without complaints. Medication Change: Yes ([place] was held. Will start patient on Abilify) Medical Record Reviewed: Yes Mental Status Examination - Cognitive Function Orientation: Person, Place, Situation, Time Memory: Intact Attention: WNL Concentration: WNL Association: WNL Fund of Knowledge: WNL - Mood Mood: Neutral - Affect Affect: Broad - Speech Speech: Appropriate - Formal Thought Process Formal Thought Process: No Impairment - Suicidal Ideation Suicidal Ideation: No - Homicidal Ideation Homicidal Ideation: No Goal/Treatment Plan - Goal/Treatment Plan Need for Continued Stay: Remain at risks for inpatient hospitalization, Discharge may exacerbated symptoms, Severe functional impairment Progress Toward Problem(s) and Goals/Treatment Plan: Will stop [place] at this time, 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 Abilify pr meds Cont. synthroid D/c plans discussed. Patient instructed that she may need closer psychiatric management in the outpatient setting, given her current medication changes. She expressed her understanding and we will continue to f/u with these arrangements prior to discharge.
[2017-06-14] MEDS ORDERED: Midazolam 2 MG/2 ML VIAL ONE (12:16)
[2017-06-14] MEDS ORDERED: Absorbable Gelatin Sponge Size 12-7 ONE (12:19)
[2017-06-14] MEDS ORDERED: Propofol 10 mg/ml Inj (20 ML) ONE (12:26)
[2017-06-14 12:32] LABS: COMPLEMENT C4 47.6 mg/dL (14.0-44.0)
--- NOTE | 2017-06-14 12:35 | PCM.SURG1 ---
Surgeon's Initial Post Op Note - Surgeon's Notes Surgeon: Jefry John MD Supervisor Benzene Refining: NONE Type of Anesthesia: IV Sedation Pre-Operative Diagnosis: Renal failure Operative Findings: US showed unremarkable left kidney Post-Operative Diagnosis: Renal failure Operation Performed: US guided left renal biopsy. Four 18-g core specimen removed. Biopsy tract embolized with gelfoam. There were no immediate complications. Specimen/Specimens Removed: 18 gauge core x 4 Estimated Blood Loss: EBL {In ML}: 3 Blood Products Given: N/A Drains Used: No Drains Post-Op Condition: Fair Date of Surgery/Procedure: 06/14/17 Time of Surgery/Procedure: 12:30
[2017-06-14 12:41] LABS: FREE T4 0.77 ng/dL (0.78-2.19)
--- NOTE | 2017-06-14 16:33 | CP.PCM.PN ---
Subjective - Date & Time of Evaluation Date of Evaluation: 06/14/17 Time of Evaluation: 16:33 - Subjective Subjective: Patient seen and examined No events overnight Status post kidney biopsy Objective - Vital Signs/Intake and Output Vital Signs (last 24 hours): Temp Pulse Resp BP Pulse Ox 98.2 F 97 H 20 142/94 H 99 06/14/17 08:00 06/14/17 08:00 06/14/17 08:00 06/14/17 08:00 06/14/17 08:00 Intake and Output: 06/14/17 06/14/17 06:59 18:59 Intake Total 800 650 Balance 800 650 - Medications Medications: Current Medications Amlodipine Besylate (Norvasc) 5 mg PO DAILY [facility] Last Admin: 06/14/17 11:05 Dose: 5 mg Aripiprazole (Abilify) 10 mg PO HS [facility] Last Admin: 06/13/17 22:00 Dose: 10 mg Ferrous Gluconate (Fergon) 324 mg PO TID [facility] Last Admin: 06/14/17 14:08 Dose: 324 mg Heparin Sodium (Porcine) (Heparin) 5,000 units SC Q12 [facility] Last Admin: 06/14/17 11:01 Dose: Not Given Sodium Chloride (Sodium Chloride 0.45%) 1,000 mls @ 75 mls/hr IV .[id number] [facility] Last Admin: 06/14/17 12:58 Dose: Not Given Ciprofloxacin (Cipro 400mg/200ml Dsw) 400 mg in 200 mls @ 133 mls/hr IVPB Q24H [facility] Last Admin: 06/13/17 21:38 Dose: 133 mls/hr Levothyroxine Sodium (Synthroid) 75 mcg PO DAILY@0630 [facility] Last Admin: 06/14/17 06:02 Dose: 75 mcg Multivitamins (Hexavitamin) 1 tab PO DAILY [facility] Trazodone HCl (Desyrel) 50 mg PO HS [facility] Last Admin: 06/13/17 21:40 Dose: 50 mg - Labs Labs: 06/14/17 07:01 06/14/17 07:01 PT 11.6 SECONDS (9.7-12.2) 06/13/17 14:52 INR 1.0 06/13/17 14:52 APTT 32 SECONDS (21-34) 06/13/17 14:52 - Head Exam Head Exam: NORMAL INSPECTION - Eye Exam Eye Exam: Normal appearance - ENT Exam ENT Exam: Mucous Membranes Moist - Respiratory Exam Respiratory Exam: Clear to Ausculation Bilateral - Cardiovascular Exam Cardiovascular Exam: REGULAR RHYTHM - GI/Abdominal Exam GI & Abdominal Exam: Soft, Normal Bowel Sounds - Extremities Exam Extremities Exam: Normal Inspection - Neurological Exam Neurological Exam: Alert, Oriented x3 Assessment and Plan - Assessment and Plan (Free Text) Assessment: 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
[2017-06-14 16:51] VITALS: O2SAT 100
[2017-06-14] MEDS: Ciprofloxacin 400mg/200ml D5W 400 MG/200 ML BAG IVPB SCH (20:51)
--- NOTE | 2017-06-14 22:08 | CP.PCM.PN ---
Subjective - Date & Time of Evaluation Date of Evaluation: 06/14/17 Time of Evaluation: 22:05 - Subjective Subjective: hypothyroidism Objective - Vital Signs/Intake and Output Vital Signs (last 24 hours): Temp Pulse Resp BP Pulse Ox 97.7 F 94 H 20 135/88 100 06/14/17 16:05 06/14/17 16:05 06/14/17 16:05 06/14/17 16:05 06/14/17 16:05 Intake and Output: 06/14/17 06/15/17 18:59 06:59 Intake Total 650 600 Balance 650 600 - Medications Medications: Current Medications Amlodipine Besylate (Norvasc) 5 mg PO DAILY [facility] Last Admin: 06/14/17 11:05 Dose: 5 mg Aripiprazole (Abilify) 10 mg PO HS [facility] Last Admin: 06/13/17 22:00 Dose: 10 mg Ferrous Gluconate (Fergon) 324 mg PO TID [facility] Last Admin: 06/14/17 18:06 Dose: 324 mg Heparin Sodium (Porcine) (Heparin) 5,000 units SC Q12 [facility] Last Admin: 06/14/17 21:35 Dose: 5,000 units Sodium Chloride (Sodium Chloride 0.45%) 1,000 mls @ 75 mls/hr IV .[id number] [facility] Last Admin: 06/14/17 21:32 Dose: 75 mls/hr Ciprofloxacin (Cipro 400mg/200ml Dsw) 400 mg in 200 mls @ 133 mls/hr IVPB Q24H [facility] Last Admin: 06/14/17 20:51 Dose: 133 mls/hr Levothyroxine Sodium (Synthroid) 100 mcg PO DAILY@0630 [facility] Multivitamins (Hexavitamin) 1 tab PO DAILY [facility] Trazodone HCl (Desyrel) 50 mg PO HS [facility] Last Admin: 06/14/17 21:34 Dose: 50 mg - Labs Labs: 06/14/17 07:01 06/14/17 07:01 PT 11.6 SECONDS (9.7-12.2) 06/13/17 14:52 INR 1.0 06/13/17 14:52 APTT 32 SECONDS (21-34) 06/13/17 14:52 Assessment and Plan (1) Hypothyroid Assessment & Plan: ssessment and Plan: Endocrine consult f/u reason for consult: hypothyroidism Source: pt and chart review Ms. Jimeens is 32 y/o admitted for diziness found with TSH of 14 as per pt. has hypothyroidism x 12 years on synthroid 50 mcg po qd , as per pt. compliant with her medications has been feeling tired & gaining weight , also with multinodular goiter s/p multiple FNAs , last was 2017 ok as per pt. 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 HEENT: denies earache, change in voice .Respiratory: denies cough, sob . CVS :no chest pain , no palpitations . Abdomen: no abdominal pain, no nausea /vomiting, no change bowel movement. 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 Extremities: no edema, no tremors. Skin: no itching, no rash Physical exam Well-developed AAO x3 , ,NAD VSS HEENT: norm cephalic, atraumatic, no lid lag , no exophthalmos NECK: supple, no palpable lymphadenopathy THYROID: (+) thyromegaly, not tender CHEST: fair air entry, bilateral, CVS: S1,S2 ABDOMEN: bowel sound present, benign, obese, no wide purple striae , no bruises EXTREMITIES: no edema, clubbing or cyanosis, no palpable hand tremors Skin: acanthosis nigricans lab: TSH 21 , free T4 0.7, T3 1.8 , TPO & TG abs , pending tsh 14 , a1c 5.5 , cr 2.2 GFR 33 Assessment hypothyroid , heart rate 90's was 70's multinodular goiter CKD obesity , parents with diabetes plan increase synthroid 100 mcg po qd , right way f/u antibodies f/u fructosamine level thyroid us we will follow with you. Status: Acute (2) Multinodular goiter Status: Acute (3) Obesity (BMI 30-39.9) Status: Acute (4) Renal failure Status: Acute
[2017-06-15] MEDS: Sodium Chloride 0.45% 1,000 ML IV SCH ×2 (01:08→14:27)
[2017-06-15 03:58] LABS: FRUCTOSAMINE 206 umol/L (190-270)
[2017-06-15] MEDS: Levothyroxine 100 MCG TAB PO SCH (05:38)
[2017-06-15 08:24] LABS: BASO % 0.3 % (0.0-2.0); HEMOGLOBIN 11.2 g/dL (11.0-16.0); LYMPH % 22.2 % (20.0-40.0); MEAN CELL VOLUME 80.9 fL (81.0-99.0); MEAN CORPUSCULAR HEMOGLOBIN 27.4 pg (27.0-31.0); MEAN CORPUSCULAR HGB CONC 33.9 g/dL (33.0-37.0); MEAN PLATELET VOLUME 7.6 fL (7.2-11.7); MONO # 0.6 K/uL (0.0-0.8); MONO % 7.1 % (0.0-10.0); NEUT # 6.2 K/uL (1.8-7.0); NEUT % 70.4 % (50.0-75.0); RBC 4.07 Mil/uL (3.80-5.20); RED CELL DISTRIBUTION WIDTH 14.7 % (11.5-14.5); WHITE BLOOD COUNT 8.8 K/uL (4.8-10.8)
[2017-06-15 08:35] LABS: CALCIUM 9.4 mg/dl (8.6-10.4)
--- NOTE | 2017-06-15 10:06 | US ---
HISTORY: multiple nodules TECHNIQUE: Sonographic evaluation of the thyroid gland. COMPARISON: Thyroid ultrasound 07/27/2015. FINDINGS: RIGHT LOBE: Measures 5.0 x 2.5 x 2.5 cm. Heterogeneous echotexture with increased vascularity. Nodules: None LEFT LOBE: Measures 4.5 x 2.2 x 2.0 cm. Heterogeneous echotexture increased vascularity. Nodules: None ISTHMUS: Measures 0.5 cm. Normal echotexture and flow. Nodules: None OTHER FINDINGS: None . IMPRESSION: Heterogeneous thyroid with increased vascularity. No discrete nodule.
[2017-06-15] MEDS: Multiple Vitamins Tab PO SCH (10:10)
--- NOTE | 2017-06-15 15:19 | CP.PCM.PN ---
Subjective - Date & Time of Evaluation Date of Evaluation: 06/15/17 Time of Evaluation: 12:20 - Subjective Subjective: Nephrology Consultation Note: Assessment: Stable Microscopic hematuria with 1 gram proteinuria Anemia Hypernatremia and low urines specific gravity/osmol ? 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 s/p kidney biopsy awaiting results lithium on hold bp stable on meds, monitor f/u gn workup Subjective: seen and examinedf feels ok Physical Examination: General Appearance: Comfortable, in no acute respiratory distress, co-operative . Vitals reviewed and noted as below Head; Atraumatic, normocephalic ENT: no ulcers no thrush. Tongue is midline. Oropharynx: no rash or ulcers. EYES: Pupils are equal, round and reactive to light accommodation. Eye muscles and extraocular movement intact. Sclera is anicteric. Neck; supple no lymphadenopathy, no thyromegaly or bruit Lungs: Normal respiratory rate/effort. Breath sounds bilateral equal and clear Heart: Normal rate. s1s2 normal. No rub or gallop. Extremities: no edema. No varicose veins Neurological: Patient is alert, awake and oriented to person, place and time. No focal deficit. Strength bilateral appropriate and equal Skin: Warm and dry. Normal turgor. No rash. Palpitation: Normal elasticity for age Abdomen: Abdomen is soft. Bowel sounds +. There is no abdominal tenderness, no guarding/rigidity no organomegaly Psych: normal insight and normal affect/mood MSK: no joint tenderness or swelling. Digits and nails normal, no deformity : kidney or bladder not palpable Labs/imaging reviewed. Past medical history, past surgical history, family history, social history, allergy reviewed and noted as below Family hx: no hx of CKD. Rest non-contributory Workup UA shows specific gravity of 1.002 and 2+ blood no protein Renal sonogram bilateral mildly echogenic kidneys Objective - Vital Signs/Intake and Output Vital Signs (last 24 hours): Temp Pulse Resp BP Pulse Ox 97.6 F 69 20 131/86 100 06/15/17 07:43 06/15/17 07:43 06/15/17 07:43 06/15/17 07:43 06/15/17 07:43 Intake and Output: 06/15/17 06/15/17 06:59 18:59 Intake Total 1350 Balance 1350 - Medications Medications: Current Medications Amlodipine Besylate (Norvasc) 5 mg PO DAILY [facility] Last Admin: 06/15/17 10:10 Dose: 5 mg Aripiprazole (Abilify) 10 mg PO HS [facility] Last Admin: 06/14/17 22:00 Dose: 10 mg Ferrous Gluconate (Fergon) 324 mg PO TID [facility] Last Admin: 06/15/17 13:24 Dose: 324 mg Heparin Sodium (Porcine) (Heparin) 5,000 units SC Q12 [facility] Last Admin: 06/15/17 10:10 Dose: 5,000 units Sodium Chloride (Sodium Chloride 0.45%) 1,000 mls @ 75 mls/hr IV .[id number] [facility] Last Admin: 06/15/17 14:27 Dose: 75 mls/hr Ciprofloxacin (Cipro 400mg/200ml Dsw) 400 mg in 200 mls @ 133 mls/hr IVPB Q24H [facility] Last Admin: 06/14/17 20:51 Dose: 133 mls/hr Levothyroxine Sodium (Synthroid) 100 mcg PO DAILY@0630 [facility] Last Admin: 06/15/17 05:38 Dose: 100 mcg Multivitamins (Hexavitamin) 1 tab PO DAILY [facility] Last Admin: 06/15/17 10:10 Dose: 1 tab Trazodone HCl (Desyrel) 50 mg PO HS [facility] Last Admin: 06/14/17 21:34 Dose: 50 mg - Labs Labs: 06/15/17 08:18 06/15/17 08:18 PT 11.6 SECONDS (9.7-12.2) 06/13/17 14:52 INR 1.0 06/13/17 14:52 APTT 32 SECONDS (21-34) 06/13/17 14:52
--- NOTE | 2017-06-15 18:06 | CP.PCM.PN ---
Subjective - Date & Time of Evaluation Date of Evaluation: 06/15/17 Time of Evaluation: 18:06 - Subjective Subjective: Patient seen and examined Denies hematuria No events overnight Objective - Vital Signs/Intake and Output Vital Signs (last 24 hours): Temp Pulse Resp BP Pulse Ox 98.2 F 99 H 20 138/89 100 06/15/17 15:00 06/15/17 15:00 06/15/17 15:00 06/15/17 15:00 06/15/17 15:00 Intake and Output: 06/15/17 06/15/17 06:59 18:59 Intake Total 1350 1100 Balance 1350 1100 - Medications Medications: Current Medications Amlodipine Besylate (Norvasc) 5 mg PO DAILY [facility] Last Admin: 06/15/17 10:10 Dose: 5 mg Aripiprazole (Abilify) 10 mg PO HS [facility] Last Admin: 06/14/17 22:00 Dose: 10 mg Ferrous Gluconate (Fergon) 324 mg PO TID [facility] Last Admin: 06/15/17 17:49 Dose: 324 mg Heparin Sodium (Porcine) (Heparin) 5,000 units SC Q12 [facility] Last Admin: 06/15/17 10:10 Dose: 5,000 units Sodium Chloride (Sodium Chloride 0.45%) 1,000 mls @ 75 mls/hr IV .[id number] [facility] Last Admin: 06/15/17 14:27 Dose: 75 mls/hr Ciprofloxacin (Cipro 400mg/200ml Dsw) 400 mg in 200 mls @ 133 mls/hr IVPB Q24H [facility] Last Admin: 06/14/17 20:51 Dose: 133 mls/hr Levothyroxine Sodium (Synthroid) 100 mcg PO DAILY@0630 [facility] Last Admin: 06/15/17 05:38 Dose: 100 mcg Multivitamins (Hexavitamin) 1 tab PO DAILY [facility] Last Admin: 06/15/17 10:10 Dose: 1 tab Trazodone HCl (Desyrel) 50 mg PO HS [facility] Last Admin: 06/14/17 21:34 Dose: 50 mg - Labs Labs: 06/15/17 08:18 06/15/17 08:18 PT 11.6 SECONDS (9.7-12.2) 06/13/17 14:52 INR 1.0 06/13/17 14:52 APTT 32 SECONDS (21-34) 06/13/17 14:52 - Head Exam Head Exam: NORMAL INSPECTION - Eye Exam Eye Exam: Normal appearance - ENT Exam ENT Exam: Mucous Membranes Moist - Respiratory Exam Respiratory Exam: Clear to Ausculation Bilateral - Cardiovascular Exam Cardiovascular Exam: REGULAR RHYTHM - GI/Abdominal Exam GI & Abdominal Exam: Hypoactive Bowel Sounds - Extremities Exam Extremities Exam: Normal Inspection Assessment and Plan - Assessment and Plan (Free Text) Assessment: 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
--- NOTE | 2017-06-15 21:08 | CP.PCM.PN ---
Subjective - Date & Time of Evaluation Date of Evaluation: 06/15/17 Time of Evaluation: 21:05 - Subjective Subjective: hypothyroid Objective - Vital Signs/Intake and Output Vital Signs (last 24 hours): Temp Pulse Resp BP Pulse Ox 98.2 F 99 H 20 138/89 100 06/15/17 15:00 06/15/17 15:00 06/15/17 15:00 06/15/17 15:00 06/15/17 15:00 Intake and Output: 06/15/17 06/16/17 18:59 06:59 Intake Total 1100 Balance 1100 - Medications Medications: Current Medications Amlodipine Besylate (Norvasc) 5 mg PO DAILY [facility] Last Admin: 06/15/17 10:10 Dose: 5 mg Aripiprazole (Abilify) 10 mg PO HS [facility] Last Admin: 06/14/17 22:00 Dose: 10 mg Ferrous Gluconate (Fergon) 324 mg PO TID [facility] Last Admin: 06/15/17 17:49 Dose: 324 mg Heparin Sodium (Porcine) (Heparin) 5,000 units SC Q12 [facility] Last Admin: 06/15/17 10:10 Dose: 5,000 units Ciprofloxacin (Cipro 400mg/200ml Dsw) 400 mg in 200 mls @ 133 mls/hr IVPB Q24H [facility] Last Admin: 06/14/17 20:51 Dose: 133 mls/hr Levothyroxine Sodium (Synthroid) 100 mcg PO DAILY@0630 [facility] Last Admin: 06/15/17 05:38 Dose: 100 mcg Multivitamins (Hexavitamin) 1 tab PO DAILY [facility] Last Admin: 06/15/17 10:10 Dose: 1 tab Trazodone HCl (Desyrel) 50 mg PO HS [facility] Last Admin: 06/14/17 21:34 Dose: 50 mg - Labs Labs: 06/15/17 08:18 06/15/17 08:18 PT 11.6 SECONDS (9.7-12.2) 06/13/17 14:52 INR 1.0 06/13/17 14:52 APTT 32 SECONDS (21-34) 06/13/17 14:52 Assessment and Plan (1) Hypothyroid Assessment & Plan: Assessment & Plan: Endocrine consult f/u reason for consult: hypothyroidism Source: pt and chart review Ms. Jimenes is 32 y/o admitted for diziness found with TSH of 14 as per pt. has hypothyroidism x 12 years on synthroid 50 mcg po qd , as per pt. compliant with her medications has been feeling tired & gaining weight , also with multinodular goiter s/p multiple FNAs , last was 2017 ok as per pt. 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 HEENT: denies earache, change in voice .Respiratory: denies cough, sob . CVS :no chest pain , no palpitations . Abdomen: no abdominal pain, no nausea /vomiting, no change bowel movement. 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 Extremities: no edema, no tremors. Skin: no itching, no rash Physical exam Well-developed AAO x3 , ,NAD VSS HEENT: norm cephalic, atraumatic, no lid lag , no exophthalmos NECK: supple, no palpable lymphadenopathy THYROID: (+) thyromegaly, not tender CHEST: fair air entry, bilateral, CVS: S1,S2 ABDOMEN: bowel sound present, benign, obese, no wide purple striae , no bruises EXTREMITIES: no edema, clubbing or cyanosis, no palpable hand tremors Skin: acanthosis nigricans lab: fructosamine 206 , thyroid us : no nodules , TPO & TG abs , pending TSH 21 , free T4 0.7, T3 1.8 tsh 14 , a1c 5.5 , cr 2.2 GFR 33 Assessment hypothyroid , heart rate 69-90 h/o multinodular goiter CKD obesity , parents with diabetes plan continue synthroid 100 mcg po qd , right way f/u thyroid antibodies we will follow with you. Status: Acute (2) Multinodular goiter Status: Acute (3) Obesity (BMI 30-39.9) Status: Acute (4) Renal failure Status: Acute
[2017-06-15] MEDS: Ciprofloxacin 400mg/200ml D5W 400 MG/200 ML BAG IVPB SCH (21:37)
[2017-06-16] MEDS: Levothyroxine 100 MCG TAB PO SCH (05:37)
--- NOTE | 2017-06-16 08:53 | CP.PCM.PN ---
Subjective - Date & Time of Evaluation Date of Evaluation: 06/16/17 Time of Evaluation: 08:52 - Subjective Subjective: Nephrology Consultation Note: Assessment: Stable Microscopic hematuria with 1 gram proteinuria Anemia Hypernatremia and low urines specific gravity/osmol ? 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 s/p kidney biopsy awaiting results lithium on hold bp stable f/u gn workup Subjective: seen and examined feels fine no flank pain Physical Examination: General Appearance: Comfortable, in no acute respiratory distress, co-operative . Vitals reviewed and noted as below Head; Atraumatic, normocephalic ENT: no ulcers no thrush. Tongue is midline. Oropharynx: no rash or ulcers. EYES: Pupils are equal, round and reactive to light accommodation. Eye muscles and extraocular movement intact. Sclera is anicteric. Neck; supple no lymphadenopathy, no thyromegaly or bruit Lungs: Normal respiratory rate/effort. Breath sounds bilateral equal and clear Heart: Normal rate. s1s2 normal. No rub or gallop. Extremities: no edema. No varicose veins Neurological: Patient is alert, awake and oriented to person, place and time. No focal deficit. Strength bilateral appropriate and equal Skin: Warm and dry. Normal turgor. No rash. Palpitation: Normal elasticity for age Abdomen: Abdomen is soft. Bowel sounds +. There is no abdominal tenderness, no guarding/rigidity no organomegaly Psych: normal insight and normal affect/mood MSK: no joint tenderness or swelling. Digits and nails normal, no deformity : kidney or bladder not palpable Labs/imaging reviewed. Past medical history, past surgical history, family history, social history, allergy reviewed and noted as below Family hx: no hx of CKD. Rest non-contributory Objective - Vital Signs/Intake and Output Vital Signs (last 24 hours): Temp Pulse Resp BP Pulse Ox 97.9 F 89 20 135/83 100 06/16/17 00:00 06/16/17 00:00 06/16/17 00:00 06/16/17 00:00 06/16/17 00:00 Intake and Output: 06/16/17 06/16/17 06:59 18:59 Intake Total 1800 Balance 1800 - Medications Medications: Current Medications Amlodipine Besylate (Norvasc) 5 mg PO DAILY [facility] Last Admin: 06/15/17 10:10 Dose: 5 mg Aripiprazole (Abilify) 10 mg PO HS [facility] Last Admin: 06/15/17 21:49 Dose: 10 mg Ferrous Gluconate (Fergon) 324 mg PO TID [facility] Last Admin: 06/15/17 17:49 Dose: 324 mg Ciprofloxacin (Cipro 400mg/200ml Dsw) 400 mg in 200 mls @ 133 mls/hr IVPB Q24H [facility] Last Admin: 06/15/17 21:37 Dose: 133 mls/hr Levothyroxine Sodium (Synthroid) 100 mcg PO DAILY@0630 [facility] Last Admin: 06/16/17 05:37 Dose: 100 mcg Multivitamins (Hexavitamin) 1 tab PO DAILY [facility] Last Admin: 06/15/17 10:10 Dose: 1 tab Trazodone HCl (Desyrel) 50 mg PO HS [facility] Last Admin: 06/15/17 21:39 Dose: 50 mg - Labs Labs: 06/15/17 08:18 06/15/17 08:18 PT 11.6 SECONDS (9.7-12.2) 06/13/17 14:52 INR 1.0 06/13/17 14:52 APTT 32 SECONDS (21-34) 06/13/17 14:52
[2017-06-16] MEDS: Multiple Vitamins Tab PO SCH (09:35)
--- NOTE | 2017-06-16 12:47 | CP.PCM.PN ---
Subjective - Date & Time of Evaluation Date of Evaluation: 06/16/17 Time of Evaluation: 12:47 - Subjective Subjective: Patient seen and examined No events overnight Objective - Vital Signs/Intake and Output Vital Signs (last 24 hours): Temp Pulse Resp BP Pulse Ox 97.9 F 89 20 135/83 100 06/16/17 00:00 06/16/17 00:00 06/16/17 00:00 06/16/17 00:00 06/16/17 00:00 Intake and Output: 06/16/17 06/16/17 06:59 18:59 Intake Total 1800 Balance 1800 - Medications Medications: Current Medications Amlodipine Besylate (Norvasc) 5 mg PO DAILY [facility] Last Admin: 06/16/17 09:35 Dose: 5 mg Aripiprazole (Abilify) 10 mg PO [facility] Last Admin: 06/15/17 21:49 Dose: 10 mg Ferrous Gluconate (Fergon) 324 mg PO TID [facility] Last Admin: 06/16/17 09:35 Dose: 324 mg Ciprofloxacin (Cipro 400mg/200ml Dsw) 400 mg in 200 mls @ 133 mls/hr IVPB Q24H [facility] Last Admin: 06/15/17 21:37 Dose: 133 mls/hr Levothyroxine Sodium (Synthroid) 100 mcg PO DAILY@0630 [facility] Last Admin: 06/16/17 05:37 Dose: 100 mcg Multivitamins (Hexavitamin) 1 tab PO DAILY [facility] Last Admin: 06/16/17 09:35 Dose: 1 tab Trazodone HCl (Desyrel) 50 mg PO [facility] Last Admin: 06/15/17 21:39 Dose: 50 mg - Labs Labs: 06/15/17 08:18 06/15/17 08:18 PT 11.6 SECONDS (9.7-12.2) 06/13/17 14:52 INR 1.0 06/13/17 14:52 APTT 32 SECONDS (21-34) 06/13/17 14:52 - Head Exam Head Exam: NORMAL INSPECTION - Eye Exam Eye Exam: Normal appearance - ENT Exam ENT Exam: Mucous Membranes Moist - Respiratory Exam Respiratory Exam: Clear to Ausculation Bilateral - Cardiovascular Exam Cardiovascular Exam: REGULAR RHYTHM, +S1, +S2 - GI/Abdominal Exam GI & Abdominal Exam: Soft, Normal Bowel Sounds - Extremities Exam Extremities Exam: Normal Inspection Assessment and Plan - Assessment and Plan (Free Text) Assessment: CKD Bipolar disorder Anemia Hypothyroidism Hypertension UTI Creatinine remains stable Synthroid 100 mcg daily Ciprofloxacin Hold lithium and other bipolar medications Norvasc Continue supportive care DVT/GI prophylaxis
[2017-06-16] MEDS: Ciprofloxacin 400mg/200ml D5W 400 MG/200 ML BAG IVPB SCH (21:29)
[2017-06-17] MEDS: Levothyroxine 100 MCG TAB PO SCH (05:55)
[2017-06-17 07:24] VITALS: BP 124/85; PULSE 85; TEMP 97.4
[2017-06-17] MEDS: Multiple Vitamins Tab PO SCH (10:01)
[2017-06-17 11:43] LABS: CALCIUM 9.6 mg/dl (8.6-10.4)
--- NOTE | 2017-06-17 14:08 | CP.PCM.PN ---
Subjective - Date & Time of Evaluation Date of Evaluation: 06/17/17 Time of Evaluation: 14:08 Objective - Vital Signs/Intake and Output Vital Signs (last 24 hours): Temp Pulse Resp BP Pulse Ox 97.4 F L 85 20 124/85 100 06/17/17 07:20 06/17/17 07:20 06/17/17 07:20 06/17/17 07:20 06/17/17 07:20 Intake and Output: 06/17/17 06/17/17 06:59 18:59 Intake Total 1050 Balance 1050 - Medications Medications: Current Medications Amlodipine Besylate (Norvasc) 5 mg PO DAILY [facility] Last Admin: 06/17/17 10:01 Dose: 5 mg Aripiprazole (Abilify) 10 mg PO [facility] Last Admin: 06/16/17 21:36 Dose: 10 mg Ferrous Gluconate (Fergon) 324 mg PO TID [facility] Last Admin: 06/17/17 13:45 Dose: 324 mg Ciprofloxacin (Cipro 400mg/200ml Dsw) 400 mg in 200 mls @ 133 mls/hr IVPB Q24H [facility] Last Admin: 06/16/17 21:29 Dose: 133 mls/hr Levothyroxine Sodium (Synthroid) 100 mcg PO DAILY@0630 [facility] Last Admin: 06/17/17 05:55 Dose: 100 mcg Multivitamins (Hexavitamin) 1 tab PO DAILY [facility] Last Admin: 06/17/17 10:01 Dose: 1 tab Trazodone HCl (Desyrel) 50 mg PO [facility] Last Admin: 06/16/17 21:33 Dose: 50 mg - Labs Labs: 06/15/17 08:18 06/17/17 11:15 PT 11.6 SECONDS (9.7-12.2) 06/13/17 14:52 INR 1.0 06/13/17 14:52 APTT 32 SECONDS (21-34) 06/13/17 14:52
--- NOTE | 2017-06-17 15:16 | CP.PCM.PN ---
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 CKD due to lithium Obesity history of bipolar disorder Plan No acute need for renal replacement therapy at this time. Hypertension control with meds as ordered. Patient not on ACEI/ARB due to LI. started norvasc 5 mg/day Monitor Input/Output, daily weights and renal function with basic metabolic panel also on iron supplements hold the lithium as per psychiatrist Hold the metformin at this time as well. a1c WNL. The patient to lose weight. abstain from nsaids Dose meds/antibiotics for reduced GFR. Avoid fleets enema/magnesium based laxatives. Avoid nephrotoxins/NSAIDs/ iodinated contrast (unless needed emergently) Glycemic control Further work up/management as per primary team pt stable for d/c from renal perspective when planned. d/up 2 weeks in office Thanks for allowing me to participate in care of your patient. Will follow patient with you. Please call if any Qs Dr Abhishek Zimmer Office: [phone] Reason for consultation is Li HPI: Pt is a 32-year-old female with history of obesity bipolar disorder on lithium for more than 10 years also on metformin? Reason also thyroid disorder currently on thyroid supplementation presented with complaints of Dizziness and also elevated creatinine and hence renal was consulted Denies OTC/herbal meds or NSAIDs Except occasional use for headache No recent iodinated contrast exposure. No obvious episodes of low BP. ROS: Cardiovascular: No chest pain. Pulmonary: No shortness of breath Gastrointestinal: denies abdominal pain No nausea. No vomiting. Genitourinary: No pain while urinating. Denies blood in urine. All other negative except as mentioned in HPI Physical Examination: General Appearance: Comfortable, in no acute respiratory distress, co-operative . Vitals reviewed and noted as below Head; Atraumatic, normocephalic ENT: no ulcers no thrush. Tongue is midline. Oropharynx: no rash or ulcers. EYES: Pupils are equal, round and reactive to light accommodation. Eye muscles and extraocular movement intact. Sclera is anicteric. Neck; supple no lymphadenopathy, no thyromegaly or bruit Lungs: Normal respiratory rate/effort. Breath sounds bilateral equal and clear Heart: Normal rate. s1s2 normal. No rub or gallop. Extremities: no edema. No varicose veins Neurological: Patient is alert, awake and oriented to person, place and time. No focal deficit. Strength bilateral appropriate and equal Skin: Warm and dry. Normal turgor. No rash. Palpitation: Normal elasticity for age Abdomen: Abdomen is soft. Bowel sounds +. There is no abdominal tenderness, no guarding/rigidity no organomegaly Psych: normal insight and normal affect/mood MSK: no joint tenderness or swelling. Digits and nails normal, no deformity : kidney or bladder not palpable Labs/imaging reviewed. Past medical history, past surgical history, family history, social history, allergy reviewed and noted as below Family hx: no hx of CKD. Rest non-contributory Workup UA shows specific gravity of 1.002 and 2+ blood no protein Renal sonogram bilateral mildly echogenic kidneys Objective - Vital Signs/Intake and Output Vital Signs (last 24 hours): Temp Pulse Resp BP Pulse Ox 97.4 F L 85 20 124/85 100 06/17/17 07:20 06/17/17 07:20 06/17/17 07:20 06/17/17 07:20 06/17/17 07:20 Intake and Output: 06/17/17 06/17/17 06:59 18:59 Intake Total 1050 700 Balance 1050 700 - Medications Medications: Current Medications Amlodipine Besylate (Norvasc) 5 mg PO DAILY [facility] Last Admin: 06/17/17 10:01 Dose: 5 mg Aripiprazole (Abilify) 10 mg PO HS [facility] Last Admin: 06/16/17 21:36 Dose: 10 mg Ferrous Gluconate (Fergon) 324 mg PO TID [facility] Last Admin: 06/17/17 13:45 Dose: 324 mg Ciprofloxacin (Cipro 400mg/200ml Dsw) 400 mg in 200 mls @ 133 mls/hr IVPB Q24H [facility] Last Admin: 06/16/17 21:29 Dose: 133 mls/hr Levothyroxine Sodium (Synthroid) 100 mcg PO DAILY@0630 [facility] Last Admin: 06/17/17 05:55 Dose: 100 mcg Multivitamins (Hexavitamin) 1 tab PO DAILY [facility] Last Admin: 06/17/17 10:01 Dose: 1 tab Trazodone HCl (Desyrel) 50 mg PO HS [facility] Last Admin: 06/16/17 21:33 Dose: 50 mg - Labs Labs: 06/15/17 08:18 06/17/17 11:15 PT 11.6 SECONDS (9.7-12.2) 06/13/17 14:52 INR 1.0 06/13/17 14:52 APTT 32 SECONDS (21-34) 06/13/17 14:52
--- NOTE | 2017-06-17 16:07 | CP.PCM.PN ---
Subjective - Date & Time of Evaluation Date of Evaluation: 06/17/17 Time of Evaluation: 16:07 - Subjective Subjective: alert and orientedx3, denies any complaints or depression. Objective - Vital Signs/Intake and Output Vital Signs (last 24 hours): Temp Pulse Resp BP Pulse Ox 97.4 F L 85 20 124/85 100 06/17/17 07:20 06/17/17 07:20 06/17/17 07:20 06/17/17 07:20 06/17/17 07:20 Intake and Output: 06/17/17 06/17/17 06:59 18:59 Intake Total 1050 700 Balance 1050 700 - Medications Medications: Current Medications Amlodipine Besylate (Norvasc) 5 mg PO DAILY [facility] Last Admin: 06/17/17 10:01 Dose: 5 mg Aripiprazole (Abilify) 10 mg PO [facility] Last Admin: 06/16/17 21:36 Dose: 10 mg Ferrous Gluconate (Fergon) 324 mg PO TID [facility] Last Admin: 06/17/17 13:45 Dose: 324 mg Ciprofloxacin (Cipro 400mg/200ml Dsw) 400 mg in 200 mls @ 133 mls/hr IVPB Q24H [facility] Last Admin: 06/16/17 21:29 Dose: 133 mls/hr Levothyroxine Sodium (Synthroid) 100 mcg PO DAILY@0630 [facility] Last Admin: 06/17/17 05:55 Dose: 100 mcg Multivitamins (Hexavitamin) 1 tab PO DAILY [facility] Last Admin: 06/17/17 10:01 Dose: 1 tab Trazodone HCl (Desyrel) 50 mg PO [facility] Last Admin: 06/16/17 21:33 Dose: 50 mg - Labs Labs: 06/15/17 08:18 06/17/17 11:15 PT 11.6 SECONDS (9.7-12.2) 06/13/17 14:52 INR 1.0 06/13/17 14:52 APTT 32 SECONDS (21-34) 06/13/17 14:52 Assessment and Plan - Assessment and Plan (Free Text) Assessment: Patient is seen and examined. Alert and orientedx3, denies any complaints of pain ir distress. Creatinine remains 2.1. Discussed with Dr Hammer, plan to discharge home today. [place] is discontinued secondary to renal toxicity. Advised to follow up with the psychiatrist and Nephrologyst in 1 week.
--- NOTE | 2017-06-17 18:17 | CP.PCM.DIS ---
Provider - Provider Date of Admission: 06/12/17 12:56 Attending physician: Bandar Hammer MD Time Spent in preparation of Discharge (in minutes): 25 Diagnosis - Discharge Diagnosis (1) Anemia Status: Acute (2) Bipolar disorder Status: Acute (3) UTI (urinary tract infection) Status: Acute (4) Hypertension Status: Acute (5) Obesity (BMI 30-39.9) Status: Acute (6) Renal failure Status: Acute Hospital Course - Lab Results Lab Results: Micro Results 06/12/17 21:20 Urine Urine Culture - Final <10,000 CFU/ML. MULTIPLE SPECIES. PROBABLE CONTAMINATION. Most Recent Lab Values WBC 8.8 K/uL (4.8-10.8) D 06/15/17 08:18 RBC 4.07 Mil/uL (3.80-5.20) 06/15/17 08:18 Hgb 11.2 g/dL (11.0-16.0) 06/15/17 08:18 Hct 33.0 % (34.0-47.0) L 06/15/17 08:18 MCV 80.9 fL (81.0-99.0) L 06/15/17 08:18 MCH 27.4 pg (27.0-31.0) 06/15/17 08:18 MCHC 33.9 g/dL (33.0-37.0) 06/15/17 08:18 RDW 14.7 % (11.5-14.5) H 06/15/17 08:18 Plt Count 289 K/uL (130-400) 06/15/17 08:18 MPV 7.6 fL (7.2-11.7) 06/15/17 08:18 Neut % (Auto) 70.4 % (50.0-75.0) 06/15/17 08:18 Lymph % (Auto) 22.2 % (20.0-40.0) 06/15/17 08:18 [place] % (Auto) 7.1 % (0.0-10.0) 06/15/17 08:18 Eos % (Auto) 0.0 % (0.0-4.0) 06/15/17 08:18 Baso % (Auto) 0.3 % (0.0-2.0) 03/03/18 08:18 Neut # (Auto) 6.2 K/uL (1.8-7.0) 06/15/17 08:18 Lymph # (Auto) 2.0 K/uL (1.0-4.3) 06/15/17 08:18 [place] # (Auto) 0.6 K/uL (0.0-0.8) 06/15/17 08:18 Eos # (Auto) 0.0 K/uL (0.0-0.7) 06/15/17 08:18 Baso # (Auto) 0.0 K/uL (0.0-0.2) 06/15/17 08:18 PT 11.6 SECONDS (9.7-12.2) 06/13/17 14:52 INR 1.0 06/13/17 14:52 APTT 32 SECONDS (21-34) 06/13/17 14:52 Sodium 143 mmol/L (132-148) 06/17/17 11:15 Potassium 4.2 mmol/L (3.6-5.2) 06/17/17 11:15 Chloride 107 mmol/L (98-107) 06/17/17 11:15 Carbon Dioxide 22 mmol/L (22-30) 06/17/17 11:15 Anion Gap 18 (10-20) 06/17/17 11:15 BUN 15 mg/dL (7-17) 06/17/17 11:15 Creatinine 2.1 mg/dL (0.7-1.2) H 06/17/17 11:15 Est GFR ( Amer) 33 06/17/17 11:15 Est GFR (Non-Af Amer) 27 06/17/17 11:15 POC Glucose (mg/dL) 86 mg/dL (65-110) 06/12/17 10:56 Random Glucose 102 mg/dL (65-105) 06/17/17 11:15 Hemoglobin A1c 5.5 % (4.2-6.5) 06/13/17 14:52 Fructosamine 206 umol/L (190-270) 06/14/17 07:01 Calcium 9.6 mg/dl (8.6-10.4) 06/17/17 11:15 Iron 109 ug/dL (37-170) 06/14/17 07:01 TIBC 333 ug/dL (250-450) 06/14/17 07:01 % Saturation 33 (20-55) 06/14/17 07:01 Ferritin 27.6 ng/mL 06/14/17 07:01 Total Bilirubin 0.5 mg/dL (0.2-1.3) 06/13/17 08:24 AST 23 U/L (14-36) 06/13/17 08:24 ALT 16 U/L (9-52) 06/13/17 08:24 Alkaline Phosphatase 127 U/L (38-126) H 06/13/17 08:24 Total Protein 7.6 g/dL (6.3-8.3) 06/13/17 08:24 Albumin 4.0 g/dL (3.5-5.0) 06/13/17 08:24 Globulin 3.6 gm/dL (2.2-3.9) 06/13/17 08:24 Albumin/Globulin Ratio 1.1 (1.0-2.1) 06/13/17 08:24 Free T4 0.77 ng/dL (0.78-2.19) L 06/14/17 07:01 Thyroxine (T4) 8.26 ug/dL (5.5-11.0) 06/14/17 07:01 Total T3 1.88 nmol/L (1.49-2.60) 06/14/17 07:01 TSH 3rd Generation 21.00 mIU/L (0.46-4.68) H 06/14/17 07:01 Urine Color Straw (YELLOW) 06/12/17 11:54 Urine Clarity Clear (Clear) 06/12/17 11:54 Urine pH 7.0 (5.0-8.0) 06/12/17 11:54 Ur Specific [place] 1.002 (1.003-1.030) L 06/12/17 11:54 Urine Protein Negative mg/dL (NEGATIVE) 06/12/17 11:54 Urine Glucose (UA) Normal mg/dL (Normal) 06/12/17 11:54 Urine Ketones Negative mg/dL (NEGATIVE) 06/12/17 11:54 Urine Blood 2+ (NEGATIVE) H 06/12/17 11:54 Urine Nitrate Negative (NEGATIVE) 06/12/17 11:54 Urine Bilirubin Negative (NEGATIVE) 06/12/17 11:54 Urine Urobilinogen Normal mg/dL (0.2-1.0) 06/12/17 11:54 Ur Leukocyte Esterase 1+ [place]/uL (Negative) H 06/12/17 11:54 Urine WBC (Auto) 5 /hpf (0-5) 06/12/17 11:54 Urine RBC (Auto) 20 /hpf (0-3) H 06/12/17 11:54 Ur Squamous Epith Cells 4 /hpf (0-5) 06/12/17 11:54 Urine Bacteria Rare (<OCC) 06/12/17 11:54 Urine Osmolality 132 mosm/kg (300-1000) L 06/13/17 21:51 Ur Random Creatinine 18.4 mg/dL 06/13/17 21:51 U Random Total Protein 16.0 mg/dL (0.0-12.0) H 06/13/17 21:53 Ur Random Sodium 30 mmol/L 06/13/17 21:51 Urine Microalbumin < 6.0 mg/L (0.0-16.6) 06/13/17 21:55 Urine Chloride 40 mmol/L (32-290) 06/12/17 21:31 Urine HCG, Qual Negative (NEGATIVE) 06/12/17 11:54 [place] 1.0 mmol/L (0.6-1.2) 06/13/17 14:52 KAIT Nuclear Membr Pat Negative (Negative) 06/14/17 07:01 Double Strand DNA Ab <1 IU/mL 06/14/17 07:01 Thyroperoxidase Ab >900 IU/mL (<9) H 06/14/17 07:01 Thyroglobulin Antibody 7 IU/mL (< OR = 1) H 06/14/17 07:01 Complement C3 134.0 mg/dL (88.0-165.0) 06/14/17 07:01 Complement C4 47.6 mg/dL (14.0-44.0) H 06/14/17 07:01 - Hospital Course Hospital Course: Patient was initially evaluated for renal failure and was thought to have chronic kidney disease. Patient underwent renal biopsy to determine the etiology of renal failure. All psych meds were held and patient was evaluated by psychiatry. Patient was also found to be hypothyroid and was continued on Synthroid with increased dose. Patient was treated for UTI with ciprofloxacin. Discharge Exam - Eye Exam Eye Exam: Normal appearance - Respiratory Exam Respiratory Exam: Clear to PA & Lateral, NORMAL BREATHING PATTERN - Cardiovascular Exam Cardiovascular Exam: REGULAR RHYTHM, +S1, +S2 - GI/Abdominal Exam GI & Abdominal Exam: Normal Bowel Sounds - Extremities Exam Extremities exam: normal inspection - Neurological Exam Neurological exam: Alert, Oriented x3 Discharge Plan - Discharge Medications Prescriptions: traZODone [Desyrel] 50 mg PO HS #15 tab amLODIPine [Norvasc] 5 mg PO DAILY #30 tab - Follow Up Plan Condition: STABLE Disposition: HOME/ ROUTINE Instructions: Kidney Failure (DC), Amlodipine, Trazodone, Obesity, Adult (DC), Body Mass Index, Adult Referrals: Bandar Hammer MD [Staff Provider] - Bal Quach DO [Staff Provider] - Abhishek Zimmer MD [Staff Provider] - Vielka Lei MD [Staff Provider] -
--- NOTE | 2017-06-18 12:59 | US ---
PROCEDURE: Date of procedure: 06/14/2017 Procedure: Ultrasound-guided left renal biopsy, CPT 22146 Ultrasound guidance for biopsy, [id number] Medication: 8 cc 2% Lidocaine, patient received IV sedation by the anesthesiologist along with physiologic monitoring. HISTORY: Renal failure TECHNIQUE: Following informed consent and procedure time-out, the patient was placed prone on the interventional table and a limited ultrasound showed slightly echogenic left kidney consistent with medical renal disease. There is no hydronephrosis or mass. The patient left back was prepped and draped in the usual sterile fashion. After patient sedated by the anesthesiologist and the skin anesthetized with lidocaine, an 18 gauge core needle was advanced percutaneously towards the lower pole cortex. Upon confirmation of needle position, three-18 gauge core specimens were obtained and sent for routine pathology. The biopsy tract was then embolized with Gelfoam. A post biopsy ultrasound showed no hematoma. There were no immediate complications. IMPRESSION: Ultrasound-guided left renal biopsy.
== END 2017-06-17 17:00 | disposition home or self-care (01) | DRG 316 ==
LOC: C.ER 10:25 → C.9E 12:56 → C.3T 16:54
PROVIDERS: ADMIT Internal Medicine Critical Care Medicine; ATTEND Internal Medicine Critical Care Medicine
PROC: 0TB13ZX Excision of Left Kidney, Percutaneous Approach, Diagnostic (ICD-10-PCS; principal; 2017-06-14)
PROC: BT42ZZZ Ultrasonography of Left Kidney (ICD-10-PCS; 2017-06-14)
DX: N17.9 Acute kidney failure, unspecified (principal); N10 Acute pyelonephritis; E87.0 Hyperosmolality and hypernatremia; E05.20 Thyrotoxicosis with toxic multinodular goiter without thyrotoxic crisis or storm; I12.9 Hypertensive chronic kidney disease with stage 1 through stage 4 chronic kidney disease, or unspecified chronic kidney disease; N18.9 Chronic kidney disease, unspecified; R31.29 Other microscopic hematuria; T39.395A Adverse effect of other nonsteroidal anti-inflammatory drugs [NSAID], initial encounter; D64.9 Anemia, unspecified; F31.9 Bipolar disorder, unspecified; E66.9 Obesity, unspecified; Z83.3 Family history of diabetes mellitus

== ENCOUNTER 2017-06-22 13:05 | Emergency (ER) | payer OTHER ==
[2017-06-22 13:07] VITALS: BMI 35.3
[2017-06-22 13:09] VITALS: TEMP 98.6
--- NOTE | 2017-06-22 13:47 | C.PDOC ---
History Of Present Illness Marie Jimenes is a 32 year old female, presents to the emergency department for evaluation of right upper back pain gradually developed since yesterday. Pain is localized and worst with movement of the right arm. Otherwise, pt denies known trauma or injury, fever, chills, headache, dizziness, neck pain, CP, shortness of breath, palpitation , diaphoresis, cough, abd. pain, N/V/D, back pain, UTI sx. Ambulate to Ed for evaluation, not in any apparent distress. PMD: Susi Quach Time Seen by Provider: 06/22/17 13:27 Chief Complaint (Nursing): Back Pain History Per: Patient History/Exam Limitations: no limitations Onset/Duration Of Symptoms: Days (x1) Current Symptoms Are (Timing): Still Present Quality Of Discomfort: "Pain" Associated Symptoms: None Exacerbating Factor(s): Movement (right arm) Past Medical History Reviewed: Historical Data, Nursing Documentation, Vital Signs Vital Signs: Last Vital Signs Temp 98.6 F 06/22/17 13:07 Pulse 102 H 06/22/17 13:07 Resp 17 06/22/17 13:07 BP 147/98 H 06/22/17 13:07 Pulse Ox 100 06/22/17 14:15 - Medical History PMH: Anxiety, Bipolar Disorder (?), Depression, HTN (?), Hyperthyroidism, Hypothyroidism Surgical History: No Surg Hx - [facility] Procedures EXCISION OF LEFT KIDNEY, PERCUTANEOUS APPROACH, DIAGNOSTIC (06/12/17) ULTRASONOGRAPHY OF LEFT KIDNEY (06/12/17) Family History: States: Unknown Family Hx - Social History Hx Tobacco Use: No Hx Alcohol Use: No Hx Substance Use: No Review Of Systems Cardiovascular: Negative for: Palpitations Respiratory: Negative for: Shortness of Breath Gastrointestinal: Negative for: Nausea Musculoskeletal: Positive for: Back Pain (right upper) Physical Exam - Physical Exam Appears: Well, Non-toxic, No Acute Distress Skin: Normal Color, Warm, Dry, No Rash, No Ecchymosis Head: Normacephalic Eye(s): bilateral: PERRL Ear(s): Bilateral: Normal Nose: No Flaring, No Discharge Oral Mucosa: Moist Neck: Trachea Midline, Supple Cardiovascular: Rhythm Regular, No Murmur, No JVD, Other ((-) carotid bruits B/L ) Respiratory: No Decreased Breath Sounds, No Accessory Muscle Use, No Rales, No Rhonchi, No Wheezing Gastrointestinal/Abdominal: Soft, No Tenderness, No Guarding, No Rebound Back: No Vertebral Tenderness, No Paraspinal Tenderness, Other (reproducible right parascapular tenderness. No palpable deofrmity, no skin changes.) Extremity: Normal ROM (RUE), Tenderness (superior aspect of right shoulder), No Deformity, No Swelling Neurological/Psych: Oriented x3, Normal Speech, Normal Motor, Normal Sensation, Normal Reflexes ED Course And Treatment ECG: Interpreted By Me, Viewed By Me ECG Rhythm: Sinus Rhythm ECG Interpretation: Normal Interpretation Of ECG: SR@89/min, NAD, no acute T wave or ST-T changes. O2 Sat by Pulse Oximetry: 100 (RA) Pulse Ox Interpretation: Normal - Radiology CXR: Interpreted by Me, Viewed By Me, Read By Radiologist CXR Interpretation: Yes: No Acute Disease - Other Rad Chest X-Ray X-Ray: Read By Radiologist Interpretation: 13:49. FINDINGS: Emanation limited by habitus. LUNGS: No focal consolidation. Please note that chest x-ray has limited sensitivity for the detection of pulmonary masses. PLEURA: No significant pleural effusion identified. No definite pneumothorax . CARDIOVASCULAR: Heart size appears within normal limits. OSSEOUS STRUCTURES: No acute osseous abnormality identified. VISUALIZED UPPER ABDOMEN: Unremarkable. OTHER FINDINGS: None. IMPRESSION: No focal consolidation identified. Progress Note: Initial Impression: back pain. Initial Plan: Chest two views (PA /LAT) [RAD], Motrin tab 600 mg PO, Ultram 50 mg PO. On re-evaluation, pt is afebrile, hemodynamicaly stable. Non-toxic. Ambulatory in ED with stable gait. PulseOx 100% RA. neck: Supple, (-) carotid bruits B/L, (-) JVD. ENT: no acute findings. Lungs: CTA B/L, BS equal B/L. CVS: (+)S1S2, reg. Abd: benign. neurologicaly intact. EKG, CXR- review and appears normal. Pt has clinical findings c/w Right upper back pain r/o muscle strain. Pt advised. ref. to f/u with PMD in 2-3 days for re-eval. return to ED if any worsening or new changes. Disposition Counseled Patient/Family Regarding: Studies Performed, Diagnosis, Need For Followup, Rx Given - Disposition Referrals: Quach,Keron, DO [Family Provider] - Disposition: HOME/ ROUTINE Disposition Time: 13:44 Condition: STABLE Additional Instructions: Light duty take pain medication as prescribed as need Follow up with PMD in 2-3 days for re-evaluation. Return to ED if any worsening or new changes. Prescriptions: Methocarbamol [Robaxin] 500 mg PO TID #14 tab traMADol [Ultram] 50 mg PO TID #7 tab Instructions: Upper Back Pain Forms: [employer] (Belarusian) - Clinical Impression Clinical Impression: Upper back pain - Scribe Statement Imtiaz Acharya All medical record entries made by the Scribe were at my direction and personally dictated by me. I have reviewed the chart and agree that the record accurately reflects my personal performance of the history, physical exam, medical decision making, and the department course for this patient. I have also personally directed, reviewed, and agree with the discharge instructions and disposition.
--- NOTE | 2017-06-22 13:51 | RAD ---
HISTORY: pain COMPARISON: Chest x-ray performed 06/12/17 TECHNIQUE: Chest PA and lateral FINDINGS: [place] limited by habitus. LUNGS: No focal consolidation. Please note that chest x-ray has limited sensitivity for the detection of pulmonary masses. PLEURA: No significant pleural effusion identified. No definite pneumothorax . CARDIOVASCULAR: Heart size appears within normal limits. OSSEOUS STRUCTURES: No acute osseous abnormality identified. VISUALIZED UPPER ABDOMEN: Unremarkable. OTHER FINDINGS: None. IMPRESSION: No focal consolidation identified.
[2017-06-22 14:39] VITALS: BP 122/82; PULSE 85; RESP 16; O2SAT 98
--- NOTE | 2017-06-24 20:24 | CARD ---
APPROVED REPORT EKG Measurement Heart [id number] <Conclusion> Normal sinus rhythm Normal ECG
== END 2017-06-22 14:38 | disposition home or self-care (01) ==
LOC: C.ER 13:05
DX: M54.9 Dorsalgia, unspecified (principal); I10 Essential (primary) hypertension